=== PATIENT | male | born 1955 | race Caucasian/White ===

== ENCOUNTER 2016-09-27 20:02 | Emergency (ER) | payer MEDICARE, MEDICAID ==
--- NOTE | 2016-09-27 21:12 | EDM.PDOC ---
ED HPI GENERAL MEDICAL PROBLEM - General Chief Complaint: CPR in Progress Stated Complaint: CPR in progress Time Seen by Provider: 09/27/16 20:02 Source of Information: Reports: EMS History Limitations: Reports: Other (unresponsive) - History of Present Illness INITIAL COMMENTS - FREE TEXT/NARRATIVE: Kenneth is a 60 yo male who is brought into the ER via [facility] ALS intercept with [facility] with CPR in progress. EMS states they were dispatched at 1922 to the [facility] for an unresponsive male who initially was having an active seizure. They state upon arrival patient was laying flat on the floor in the washroom unresponsive with no pulse at 1930. Immediately they started CPR and the ROSE MARIE device was attached. He had vomit in the mouth and they immediately suctioned with ET intubation. Rhythm analysis showed asystole with no shock advised. Intercept with [facility] and two doses of epinephrine was given via ALS intercept. Patient arrived to the ER at 1802. Last dose of epinephrine was given at 1804. Chest compressions via Rose [place] continued and rhythm analyzed continued to show asystole. Code was called at 1806. Treatments ENTRY LEVEL ACCOUNTING CLERK: Reports: CPR, EKG, IV/IO, Other Medication(s) Other Treatments ENTRY LEVEL ACCOUNTING CLERK: epi - Related Data Allergies Allergy/AdvReac Type Severity Reaction Status Date / Time flurbiprofen Allergy Cannot Verified 09/27/16 21:01 Remember levofloxacin Allergy Cannot Verified 09/27/16 21:01 Remember Penicillins Allergy Cannot Verified 09/27/16 21:01 Remember Past Medical History - History Comment History Comment: Unknown history ED ROS GENERAL - Review of Systems Review Of Systems: Unable To Obtain ED EXAM, CPR - Physical Exam Exam: See Below Limited By: Unresponsive Throat/Mouth: Other (dried emesis to face) Respiratory Chest: Other (ET intubation with mechanical breathing) Cardiovascular: Absent Heart Sounds, CPR In Progress. No: Pulse with Compression 0: Left Carotid, Femoral (R), Femoral (L) Neurological: Unresponsive Skin Exam: Other (Ashen color) Departure - Departure Time of Disposition: 18:06 Disposition: 20 Clinical Impression: D.O.A. ( on arrival) - Discharge Information Forms: ED Department Discharge - Problem List & Annotations (1) D.O.A. ( on arrival) SNOMED Code(s): 87135925 Code(s): R99 - ILL-DEFINED AND UNKNOWN CAUSE OF MORTALITY Status: Acute Current Visit: Yes - Assessment/Plan Plan: Guardian was contacted and home arranged.
== END 2016-09-27 22:44 | disposition expired ==
LOC: CC.ED 20:02
DX: Z88.0 Allergy status to penicillin; Z88.8 Allergy status to other drugs, medicaments and biological substances
CPT/HCPCS: 99285